=== PATIENT | male | born 1940 | race Caucasian/White ===

== ENCOUNTER 2018-01-22 03:17 | Emergency (ER) | payer OTHER ==
[~2018-01-22] VITALS: Ht 193 cm; Wt 167.6 kg
[~2018-01-22 03:17] MED LIST: ATENOLOL100 MG PO; Aspirin PO; COZAAR50 MG PO; Lopressor PO; PLAVIX75 MG PO; Pradaxa PO; Tenormin PO; XARELTO10 MG PO; Xarelto PO; Zocor PO
[2018-01-22 04:05] LABS: HEMATOCRIT 46.6 % (38.0-50.0); HEMOGLOBIN 15.4 G/DL (12.5-16.6); MCH 30.3 PG (29.0-34.0); MCV 91.6 FL (86-99); PLATELET COUNT 211 K/uL (156-360); RBC DIS.WIDTH-CV 12.7 % (11.8-14.6); RBC DIS.WIDTH-SD 42.8 % (39-53); RED BLOOD COUNT 5.09 M/uL (4.00-5.50); WHITE BLOOD COUNT 11.1 K/uL (4.1-10.2)
[2018-01-22 04:10] LABS: INTER. NORMALIZED RATIO 1.8
[2018-01-22 04:13] LABS: PTT 40.3 SEC (25-37)
[2018-01-22 04:15] LABS: CHLORIDE 104 mEq/L (99-109); POTASSIUM 3.7 mEq/L (3.7-5.4); SODIUM 138 mEq/L (136-147)
[2018-01-22 04:18] LABS: GLUCOSE 135 mg/dL (70-99); TOTAL PROTEIN 6.8 g/dL (6.4-8.3)
[2018-01-22 04:19] LABS: TOTAL BILIRUBIN 0.5 mg/dL (0.0-1.0)
[2018-01-22 04:21] LABS: ALKALINE PHOSPHATASE 98 IU/L (3-129); CREATININE 0.9 mg/dL (0.6-1.3); GFR ESTIMATE (CALCULATED) > 59 mL/min/ (58.99-99999)
[2018-01-22 04:22] LABS: UREA NITROGEN (BUN) 13 mg/dL (9-23)
[2018-01-22 04:23] LABS: AST (GOT) 16 IU/L (2-34)
[2018-01-22 04:24] LABS: ALT (GPT) 19 IU/L (3-49)
[2018-01-22] MEDS ORDERED: KEFLEX500 MG PO (04:45)
[2018-01-22 04:54] LABS: APPEARANCE SL.HAZY ((CLEAR)); BILIRUBIN NEGATIVE; BLOOD MODERATE; GLUCOSE (STRIP) 50; KETONES NEGATIVE; LEUKOCYTES NEGATIVE; NITRITE NEGATIVE; PROTEIN (STRIP) 100; SPECIFIC GRAVITY 1.009 (1.000-1.030); UROBILINOGEN 0.2 MG/DL (0.2-1.0)
[2018-01-22 04:55] LABS: COLOR RED ((YELLOW))
[2018-01-22 05:20] VITALS: BP 196/79
[2018-01-22 07:03] LABS: RED BLOOD CELLS TNTC /HPF (0-5); UCUL ADDED? YES
== END 2018-01-22 05:21 | disposition home or self-care (01) ==
LOC: EME 03:17
PROVIDERS: Emergency Medicine
PROC: 0T9B70Z Drainage of Bladder with Drainage Device, Via Natural or Artificial Opening (ICD-10-PCS; principal; 2018-01-22)
DX: N99.820 Postprocedural hemorrhage of a genitourinary system organ or structure following a genitourinary system procedure (principal); R33.8 Other retention of urine; R31.9 Hematuria, unspecified; Z98.890 Other specified postprocedural states; Z87.442 Personal history of urinary calculi; I10 Essential (primary) hypertension; E78.5 Hyperlipidemia, unspecified; Z79.01 Long term (current) use of anticoagulants; Z79.82 Long term (current) use of aspirin; Z90.49 Acquired absence of other specified parts of digestive tract
CPT/HCPCS: 80053; 81003; 85027; 85610; 85730; 87086

== ENCOUNTER 2018-01-22 16:00 | Emergency (ER) | payer OTHER ==
[~2018-01-22] VITALS: Ht 193 cm; Wt 144.7 kg
[~2018-01-22 16:00] MED LIST changes: +KEFLEX500 MG PO
[2018-01-22 16:28] LABS: BASOPHIL (%) 0.3 % (0-1); EOSINOPHIL (%) 0.4 % (0-5); EOSINOPHIL COUNT 0.1 K/uL (0-0.3); HEMATOCRIT 49.1 % (38.0-50.0); HEMOGLOBIN 15.8 G/DL (12.5-16.6); IMMATURE GRANULOCYTE (%) 0.5 % (0.0-0.7); LYMPHOCYTE COUNT 1.8 K/uL (1.0-2.8); MCH 29.2 PG (29.0-34.0); MCHC 32.2 G/DL (30.0-36.0); MCV 90.6 FL (86-99); MONOCYTE (%) 9.2 % (3-12); MONOCYTE COUNT 1.1 K/uL (0-0.8); NEUTROPHIL (%) 74.6 % (45-76); NEUTROPHIL COUNT 8.9 K/uL (1.8-6.4); PLATELET COUNT 245 K/uL (156-360); RBC DIS.WIDTH-SD 42.8 % (39-53); RED BLOOD COUNT 5.42 M/uL (4.00-5.50); WHITE BLOOD COUNT 11.9 K/uL (4.1-10.2)
[2018-01-22 16:37] LABS: CHLORIDE 107 mEq/L (99-109); POTASSIUM 4.1 mEq/L (3.7-5.4)
[2018-01-22 16:38] LABS: SODIUM 143 mEq/L (136-147)
[2018-01-22 16:39] LABS: GLUCOSE 112 mg/dL (70-99); INTER. NORMALIZED RATIO 1.3
[2018-01-22 16:41] LABS: PTT 34.8 SEC (25-37)
[2018-01-22 16:43] LABS: GFR ESTIMATE (CALCULATED) > 59 mL/min/ (58.99-99999)
[2018-01-22 16:44] LABS: UREA NITROGEN (BUN) 12 mg/dL (9-23)
[2018-01-22 17:25] LABS: APPEARANCE SL.HAZY ((CLEAR)); BILIRUBIN NEGATIVE; BLOOD LARGE; GLUCOSE (STRIP) NEGATIVE; KETONES NEGATIVE; LEUKOCYTES NEGATIVE; NITRITE NEGATIVE; PROTEIN (STRIP) 100; UROBILINOGEN 0.2 MG/DL (0.2-1.0)
[2018-01-22 17:27] LABS: COLOR RED ((YELLOW))
[2018-01-22 17:58] LABS: BACTERIA 2+ /HPF; EPITHELIAL CELLS NONE SEEN /HPF; MUCUS 1+ /LPF; RED BLOOD CELLS TNTC /HPF (0-5); UCUL ADDED? YES; WHITE BLOOD CELLS 0-5 /HPF (0-5)
[2018-01-22 18:00] VITALS: BP 184/85
== END 2018-01-22 18:00 | disposition home or self-care (01) ==
LOC: EXP 16:00 → EME 16:00 → EXP 18:00
PROVIDERS: Nurse Practitioner Family
DX: R33.9 Retention of urine, unspecified (principal); R31.9 Hematuria, unspecified; Z98.890 Other specified postprocedural states; Z79.01 Long term (current) use of anticoagulants; Z79.82 Long term (current) use of aspirin; Z87.442 Personal history of urinary calculi; I10 Essential (primary) hypertension; E78.5 Hyperlipidemia, unspecified
CPT/HCPCS: 80048; 81003; 85025; 85610; 85730; 87086; 99281; 99283

== ENCOUNTER 2018-01-26 21:11 | Observation (INO) | payer OTHER ==
[~2018-01-26] VITALS: Ht 190.5 cm; Wt 163.0 kg
[2018-01-26 21:44] LABS: HEMATOCRIT 47.2 % (38.0-50.0); HEMOGLOBIN 15.5 G/DL (12.5-16.6); MCH 29.9 PG (29.0-34.0); MCHC 32.8 G/DL (30.0-36.0); MCV 91.1 FL (86-99); PLATELET COUNT 242 K/uL (156-360); RBC DIS.WIDTH-SD 43.3 % (39-53); RED BLOOD COUNT 5.18 M/uL (4.00-5.50); WHITE BLOOD COUNT 12.9 K/uL (4.1-10.2)
[2018-01-26 21:53] LABS: CHLORIDE 104 mEq/L (99-109); POTASSIUM 3.8 mEq/L (3.7-5.4); SODIUM 142 mEq/L (136-147)
[2018-01-26 21:54] LABS: GLUCOSE 135 mg/dL (70-99)
[2018-01-26 21:58] LABS: CREATININE 1.1 mg/dL (0.6-1.3); GFR ESTIMATE (CALCULATED) > 59 mL/min/ (58.99-99999)
[2018-01-26 21:59] LABS: UREA NITROGEN (BUN) 14 mg/dL (9-23)
[2018-01-26 22:05] LABS: TROP-I INTERPRETATION NEGATIVE; TROPONIN-I < 0.01 ng/mL (0.0-0.30)
[2018-01-27] MEDS ORDERED: CEPHALEXIN500 MG PO (01:21)
[2018-01-27] MEDS ORDERED: LOSARTAN POTAS100 MG PO (01:21)
[2018-01-27] MEDS ORDERED: XARELTO20 MG PO (01:22)
[2018-01-27] MEDS ORDERED: ATENOLOL100 MG PO (01:23)
[2018-01-27] MEDS ORDERED: TAMSULOSIN HCL0.4 MG PO (01:24)
[2018-01-27] MEDS ORDERED: SIMVASTATIN40 MG PO (01:25)
[2018-01-27] MEDS ORDERED: HYDROCHLOROTHIA25 MG PO (01:25)
[2018-01-27] MEDS ORDERED: LO-DOSE ASPIRIN81 M2 PO (01:27)
[2018-01-27 02:06] VITALS: BP 171/91
[2018-01-27 03:42] LABS: APPEARANCE CLEAR ((CLEAR)); BILIRUBIN NEGATIVE; BLOOD LARGE; COLOR YELLOW ((YELLOW)); GLUCOSE (STRIP) NEGATIVE; KETONES NEGATIVE; LEUKOCYTES SMALL; NITRITE NEGATIVE; PROTEIN (STRIP) NEGATIVE; SPECIFIC GRAVITY 1.016 (1.000-1.030); UROBILINOGEN 0.2 MG/DL (0.2-1.0)
[2018-01-27 03:52] LABS: BACTERIA NONE SEEN /HPF; EPITHELIAL CELLS RARE /HPF; MUCUS NONE SEEN /LPF; RED BLOOD CELLS TNTC /HPF (0-5); UCUL ADDED? YES
[2018-01-27 06:07] LABS: TROP-I INTERPRETATION NEGATIVE; TROPONIN-I < 0.01 ng/mL (0.0-0.30)
[2018-01-27 10:13] VITALS: BP 156/79
[2018-01-27 11:04] LABS: TROP-I INTERPRETATION NEGATIVE; TROPONIN-I < 0.01 ng/mL (0.0-0.30)
== END 2018-01-27 13:20 | disposition home or self-care (01) ==
LOC: EME 21:11 → EDOF 01-27 01:10 → 4SOUTH 01-27 02:03
PROVIDERS: Physician Assistant
DX: R00.2 Palpitations (principal); R06.02 Shortness of breath; R91.8 Other nonspecific abnormal finding of lung field; D72.829 Elevated white blood cell count, unspecified; I48.0 Paroxysmal atrial fibrillation; I10 Essential (primary) hypertension; E78.5 Hyperlipidemia, unspecified; N40.1 Benign prostatic hyperplasia with lower urinary tract symptoms; R33.8 Other retention of urine; Z79.01 Long term (current) use of anticoagulants; I25.10 Atherosclerotic heart disease of native coronary artery without angina pectoris; Z95.5 Presence of coronary angioplasty implant and graft; Z80.0 Family history of malignant neoplasm of digestive organs; Z80.1 Family history of malignant neoplasm of trachea, bronchus and lung; Z79.82 Long term (current) use of aspirin
CPT/HCPCS: 71046; 80048; 81003; 84484; 85027; 87040; 87086; 93005; 99281; 99284; G0378; J0696